=== PATIENT | female | born 1955 | race Caucasian/White ===

== ENCOUNTER → 2018-09-09 09:38 | Outpatient (CLI) | payer OTHER, SELFPAY | PROVIDERS: PCP Family Medicine; Visit Provider Surgery | DX: R10.9 Unspecified abdominal pain (principal) ==

== ENCOUNTER → 2018-09-09 12:52 | Outpatient (CLI) | payer OTHER, SELFPAY ==
[2018-09-09 13:11] LABS: Add Manual Diff / Slide Review NO; Basophils Percent Auto 0.9 % (0-2); Eosinophils Percent Auto 2.4 % (2-4); Hematocrit 37.4 % (36-46); Hemoglobin 12.5 g/dL (12.0-16.0); Lymphocytes Percent Auto 31.1 % (25-40); Mean Corpuscular HGB Conc 33.6 % (30-36); Mean Corpuscular Hemoglobin 31.1 PG (26-34); Mean Corpuscular Volume 92.5 fL (80-100); Monocytes Percent Auto 9.5 % (3-14); Neutrophils Absolute Auto 3500 /uL (3000-5900); Neutrophils Percent Auto 56.1 % (50-75); Platelet Count 233 X10^3/uL (150-400); Red Blood Cell Count 4.04 X10^6/uL (4.0-5.2); Red Cell Distribution Width 14.1 % (11.6-14.8); White Blood Cell Count 6.2 X10^3/uL (4.5-11.0)
[2018-09-09 13:34] LABS: Alanine Aminotransferase 23 IU/L (9-52); Albumin 4.4 g/dL (3.5-5.0); Albumin Globulin Ratio 1.4 (1.0-2.8); Alkaline Phosphatase 55 U/L (38-126); Aspartate Aminotransferase 32 IU/L (14-36); BUN Creatinine Ratio 22.5 (6-22); Bilirubin Total 0.5 mg/dL (0.2-1.3); Blood Urea Nitrogen 18 mg/dL (7-17); Calcium 9.4 mg/dL (8.4-10.2); Carbon Dioxide 30 mmol/L (22-32); Chloride 105 mmol/L (98-107); Estimated Glomerular Filt Rate > 60.0 mL/min (>60); Globulin 3.2 g/dL (1.7-4.1); Glucose 88 mg/dL (80-110); HEMOLYSIS < 15 (0-50); Potassium 4.1 mmol/L (3.4-5.1); Sodium 144 mmol/L (137-145); Total Protein 7.6 g/dL (6.3-8.2)
--- NOTE | 2018-09-09 13:50 | DI.US.S_ITS ---
PROCEDURE: US ABDOMEN COMPLETE INDICATIONS: PAIN, BLOATING TECHNIQUE: Real-time scanning was performed of the abdominal and retroperitoneal organs, with image documentation. COMPARISON: None. FINDINGS: Liver: Liver is normal in size with mild steatosis. Gallbladder: Gallbladder demonstrates presence of multiple echogenic foci with. Wall thickness is within normal limits measuring 1.7 mm. Biliary ducts: Intrahepatic bile ducts are non-dilated. Extrahepatic bile duct caliber measures 6.3 mm. Normal is 6-7 mm or less in diameter, or 10 mm or less post-cholecystectomy. Pancreas: Visualized portions of the pancreas are sonographically normal. Spleen: Spleen is normal in size and homogeneous in echotexture. Kidneys: Kidneys are normal in size and echotexture. Right kidney measures 12.3 cm long; left kidney measures 10.7 cm long. No hydronephrosis or nephrolithiasis. No solid masses. Aorta: Visualized aorta is normal in caliber at less than 3 cm. Iliacs: Proximal common iliac arteries are normal in caliber at less than 2.5 cm. IVC: Intrahepatic inferior vena cava is patent. Miscellaneous: No free abdominal fluid. IMPRESSION: 1. Cholelithiasis without imaging evidence of cholecystitis. Dictated by: Cami Huang M.D. on 09/09/2018 at 15:49 Approved by: Cami Huang M.D. on 09/09/2018 at 16:17
== END ==
PROVIDERS: PCP Family Medicine; Visit Provider Surgery
DX: K80.20 Calculus of gallbladder without cholecystitis without obstruction (principal); R10.9 Unspecified abdominal pain
CPT/HCPCS: 36415; 76700; 80053; 85025

== ENCOUNTER → 2018-09-13 17:00 | Outpatient (CLI) | payer OTHER, SELFPAY | PROVIDERS: PCP Family Medicine | DX: Z23 Encounter for immunization (principal) | CPT/HCPCS: 90471; 90686 ==

== ENCOUNTER → 2019-08-25 08:40 | Outpatient (CLI) | payer OTHER, SELFPAY | PROVIDERS: PCP Family Medicine | DX: Z23 Encounter for immunization (principal) | CPT/HCPCS: 90471; 90686 ==

== ENCOUNTER → 2020-10-26 10:40 | Outpatient (CLI) | payer OTHER, SELFPAY ==
[2020-10-26 12:38] LABS: Add Manual Diff / Slide Review NO; Basophils Absolute Auto 0 /uL (0-100); Basophils Percent Auto 0.8 % (0-2); Eosinophils Absolute Auto 100 /uL (0-450); Eosinophils Percent Auto 2.8 % (2-4); Hematocrit 38.9 % (36-46); Hemoglobin 13.2 g/dL (12.0-16.0); Lymphocytes Absolute Auto 2000 /uL (1100-4500); Lymphocytes Percent Auto 39.7 % (25-40); Mean Corpuscular HGB Conc 33.8 % (30-36); Mean Corpuscular Volume 91.6 fL (80-100); Monocytes Absolute Auto 400 /uL (0-900); Monocytes Percent Auto 7.5 % (3-14); Neutrophils Absolute Auto 2500 /uL (1500-7000); Neutrophils Percent Auto 49.2 % (50-75); Platelet Count 228 X10^3/uL (150-400); Red Blood Cell Count 4.25 X10^6/uL (4.0-5.2); Red Cell Distribution Width 13.6 % (11.6-14.8); White Blood Cell Count 5.2 X10^3/uL (4.5-11.0)
[2020-10-26 13:24] LABS: Alanine Aminotransferase 19 IU/L (<35); Albumin 4.2 g/dL (3.5-5.0); Albumin Globulin Ratio 1.4 (1.0-2.8); Alkaline Phosphatase 59 U/L (38-126); Aspartate Aminotransferase 34 IU/L (14-36); BUN Creatinine Ratio 31.3 (6-22); Bilirubin Total 0.3 mg/dL (0.2-1.3); Blood Urea Nitrogen 25 mg/dL (7-17); Calcium 9.5 mg/dL (8.4-10.2); Carbon Dioxide 30 mmol/L (22-32); Chloride 105 mmol/L (98-107); Cholesterol 201 mg/dL (140-199); Estimated Glomerular Filt Rate > 60.0 mL/min (>60); Glucose 88 mg/dL (80-110); HDL Cholesterol 44 mg/dL (40-60); HEMOLYSIS < 15 (0-50); LDL Cholesterol Calculated 95 mg/dL (<100); Potassium 4.5 mmol/L (3.4-5.1); Sodium 137 mmol/L (137-145); Total Protein 7.2 g/dL (6.3-8.2); Triglycerides 310 mg/dL (35-150)
== END ==
PROVIDERS: PCP Registered Nurse; Referring Provider Registered Nurse; Visit Provider Registered Nurse
DX: Z00.00 Encounter for general adult medical examination without abnormal findings (principal); F41.8 Other specified anxiety disorders; Z79.899 Other long term (current) drug therapy; E78.5 Hyperlipidemia, unspecified
CPT/HCPCS: 36415; 80053; 80061; 85025

== ENCOUNTER → 2020-11-05 10:12 | Outpatient (CLI) | payer OTHER, SELFPAY ==
[2020-11-05 10:49] LABS: COVID19 -Nasal RAPID Negative (Negative)
== END ==
PROVIDERS: PCP Registered Nurse; Visit Provider Physician Assistant
DX: Z11.59 Encounter for screening for other viral diseases (principal)
CPT/HCPCS: 87635

== ENCOUNTER → 2020-11-29 09:11 | Outpatient (CLI) | payer OTHER, SELFPAY ==
[2020-11-29] MEDS: COVID-19 VACC(MODERNA-1)/PF 100 MCG/0.5 ML VIAL IM (09:21)
== END ==
PROVIDERS: PCP Registered Nurse; Visit Provider Internal Medicine
DX: Z23 Encounter for immunization (principal)
CPT/HCPCS: 0011A; 91301

== ENCOUNTER → 2020-12-26 09:16 | Outpatient (CLI) | payer OTHER, SELFPAY ==
[2020-12-26] MEDS: COVID-19 VACC #2, MRNA(MOD) 100 MCG/0.5 ML VIAL IM (09:19)
== END ==
PROVIDERS: PCP Registered Nurse; Visit Provider Internal Medicine
DX: Z23 Encounter for immunization (principal)
CPT/HCPCS: 0012A; 91301

== ENCOUNTER → 2021-09-12 | Outpatient (CLI) | payer OTHER, SELFPAY | PROVIDERS: PCP Registered Nurse; Referring Provider Internal Medicine; Visit Provider Internal Medicine | DX: Z23 Encounter for immunization (principal) | CPT/HCPCS: 90471; 90686 ==

== ENCOUNTER → 2021-10-04 08:20 | Outpatient (CLI) | payer OTHER, SELFPAY ==
[2021-10-04] MEDS: COVID-19 VACC #3, MRNA(MOD) 50 MCG/0.25 ML VIAL IM (08:27)
== END ==
PROVIDERS: PCP Registered Nurse; Visit Provider Internal Medicine
DX: Z23 Encounter for immunization (principal)
CPT/HCPCS: 0013A; 91301

== ENCOUNTER → 2022-08-26 09:00 | Outpatient (CLI) | payer OTHER, SELFPAY | PROVIDERS: PCP Registered Nurse; Referring Provider Internal Medicine; Visit Provider Internal Medicine | DX: Z23 Encounter for immunization (principal) | CPT/HCPCS: 90471; 90686 ==

== ENCOUNTER 2023-03-17 06:38 | Emergency (ER) | payer OTHER, SELFPAY ==
[2023-03-17] VITALS (36 sets, daily range): BP systolic 106–177; BP diastolic 74–119; PULSE 71–158; RESP 14–28; TEMP 36.7; O2SAT 93–99; BMI 32.3
--- NOTE | 2023-03-17 06:40 | DI.RAD.S_ITS ---
PROCEDURE: XR CHEST 1V INDICATIONS: new a fib TECHNIQUE: One view of the chest was acquired. COMPARISON: None. FINDINGS: Surgical changes and devices: None. Lungs and pleura: Lungs are clear. No pleural effusions or pneumothorax. Mediastinum: Mediastinal contours appear normal. Heart size is normal. Bones and chest wall: No suspicious bony lesions. Overlying soft tissues appear unremarkable. IMPRESSION: No acute cardiopulmonary process. Agree with preliminary report. Dictated by: Andres Allen M.D. on 03/17/2023 at 8:00 Approved by: Andres Allen M.D. on 03/17/2023 at 8:00
[2023-03-17 06:51] LABS: Add Manual Diff / Slide Review NO; Basophils Absolute Auto 100 /uL (0-100); Basophils Percent Auto 1.5 % (0-2); Eosinophils Absolute Auto 200 /uL (0-450); Eosinophils Percent Auto 3.9 % (2-4); Hematocrit 43.5 % (36-46); Hemoglobin 14.7 g/dL (12.0-16.0); Lymphocytes Absolute Auto 2400 /uL (1100-4500); Lymphocytes Percent Auto 37.2 % (25-40); Mean Corpuscular HGB Conc 33.7 % (30-36); Mean Corpuscular Hemoglobin 30.3 PG (26-34); Monocytes Absolute Auto 600 /uL (0-900); Monocytes Percent Auto 9.9 % (3-14); Neutrophils Absolute Auto 3000 /uL (1500-7000); Neutrophils Percent Auto 47.5 % (50-75); Platelet Count 257 X10^3/uL (150-400); Red Blood Cell Count 4.84 X10^6/uL (4.0-5.2); Red Cell Distribution Width 13.8 % (11.6-14.8); White Blood Cell Count 6.3 X10^3/uL (4.5-11.0)
[2023-03-17] MEDS: dilTIAZem 5 MG/ML SDV 20 MG IV (06:55)
[2023-03-17 07:02] LABS: Alanine Aminotransferase 27 IU/L (<35); Albumin 4.1 g/dL (3.5-5.0); Albumin Globulin Ratio 1.1 (1.0-2.8); Alkaline Phosphatase 66 U/L (38-126); Aspartate Aminotransferase 37 IU/L (14-36); Bilirubin Total 0.5 mg/dL (0.2-1.3); Blood Urea Nitrogen 21 mg/dL (7-17); Carbon Dioxide 25 mmol/L (22-32); Chloride 106 mmol/L (98-107); Estimated Glomerular Filt Rate > 60 mL/min (>60); Globulin 3.6 g/dL (1.7-4.1); Glucose 132 mg/dL (80-110); HEMOLYSIS < 15 (0-50); Magnesium 1.9 mg/dL (1.6-2.3); Potassium 3.9 mmol/L (3.4-5.1); Sodium 140 mmol/L (137-145); Total Protein 7.7 g/dL (6.3-8.2)
[2023-03-17 07:14] LABS: Troponin I < 0.012 ng/mL (0.01-0.034)
--- NOTE | 2023-03-17 07:27 | ED.ARRPALP ---
HPI - Arrhythmia/Palpitations General Chief Complaint: Arrhythmia/Palpitations Stated Complaint: chest pain Time Seen by Provider: 03/17/23 06:40 Source: patient Mode of arrival: Ambulatory Limitations: no limitations History of Present Illness HPI narrative: Patient is a 67-year-old female who arrived to the emergency department this morning for palpitations. She states she was at work this morning when she would sudden onset feeling like her heart was beating fast. She denies chest pain, shortness of breath or lightheadedness. She is never been diagnosed with atrial fibrillation in the past. She states she had 1 episode over the weekend that lasted 10-15 minutes they felt very similar to this but it did resolve on its own. No changes in any medications. No swelling in her legs. No prior cardiac history Related Data Previous Rx's Medication Instructions Recorded venlafaxine 75 mg capsule,extended 225 mg PO DAILY anxiety with 03/20/22 release 24 hr (Effexor XR) depression 90 days #270 caps rivaroxaban 20 mg tablet (Xarelto) 20 mg PO QPM #28 tabs 03/17/23 Allergies Allergy/AdvReac Type Severity Reaction Status Date / Time No Known Drug Allergies Allergy Verified 10/22/20 13:22 Review of Systems Constitutional Constitutional: Reports system reviewed and no additional complaints, except as documented Cardiovascular Cardiovascular: Reports system reviewed and no additional complaints, except as documented Respiratory Respiratory: Reports system reviewed and no additional complaints, except as documented Gastrointestinal Gastrointestinal: Reports system reviewed and no additional complaints, except as documented Integumentary/Breasts Skin/Breast: Reports system reviewed and no additional complaints, except as documented Neurologic Neurologic: Reports system reviewed and no additional complaints, except as documented Hematologic/Lymphatic On Anticoagulants: No Patient History Medical History Abnormal laboratory test result Chronic back pain (~2016) Surgical History History of tonsillectomy Social History Smoking Status: Current every day smoker Smoking Status: Current every day smoker alcohol intake frequency: a few times a month Substance Use Type: does not use Exam Initial Vital Signs Initial Vital Signs: Vital Signs Pulse Rate 150 H 03/17/23 06:40 Respiratory Rate 21 03/17/23 06:40 Blood Pressure 166/107 H 03/17/23 06:40 Pulse Oximetry 97 03/17/23 06:40 Oxygen Delivery Method Room Air 03/17/23 06:40 Const General: cooperative and comfortable HENMT Head: normal to inspection and normocephalic Resp Effort & Inspection: normal respiratory effort Auscultation: clear to auscultation bilaterally Cardio Rate: tachycardic Rhythm: abnormal rhythm GI Inspection: normal to inspection Neuro General: patient alert, patient awake and moves all extremities Extrem General: No edema Procedures Cardioversion Consent Signed: Yes Indication: AFib with RVR Stability: Stable Number of attempts (shocks): 1 Joules used: 120 Cardiac rhythm post-cardioversion: Sinus rhythm Procedural Sedation Consent signed: Yes Time out performed: Yes Indication: cardioversion ASA Class: II Mallampati Airway Classification: Class II Preparation: manager monitoring applied, pulse oximeter, capnometry used, supplemental O2 applied, suction/airway equipment at bedside and IV secured Fentanyl: IV Fentanyl dose (mcg): 25 IV Propofol dose (mg): 90 Intraservice time/total sedation time (min): 15 ED Sedation Level: Moderate (Concious) Patient Tolerated Procedure: Well Complications: hypoxia Interventions: Airway repositioned and Oxygen applied Course Orders Ordered: ED Orders 03/17/23 06:40 XR chest 1V Stat Complete Blood Count AUTO DIFF Stat Comprehensive Metabolic Panel Stat Magnesium Stat TSH [Thyroid Stimulating Hormone] Stat Troponin I Stat 03/17/23 08:26 EKG-12 Lead Stat 03/17/23 08:29 Urine Culture Stat Urine Microscopic Stat Discontinued Medications Diltiazem HCl (Diltiazem 5 Mg/Ml Sdv) 20 mg IV NOW ONE Stop: 03/17/23 06:46 Last Admin: 03/17/23 06:55 Dose: 20 mg Documented By: MASSIMO Fentanyl (Fentanyl 100 Mcg/2 Ml Inj) 25 mcg IV NOW ONE Stop: 03/17/23 07:28 Last Admin: 03/17/23 08:11 Dose: 25 mcg Documented By: RB Propofol (Propofol 200 Mg/20 Ml Vial) 100 mg IV NOW ONE Stop: 03/17/23 07:28 Last Admin: 03/17/23 08:11 Dose: 100 mg Documented By: RB Vital Signs Vital signs: Vital Signs - 8 hr 03/17/23 06:40 03/17/23 06:55 03/17/23 06:40 Temperature Pulse Rate 150 H 158 H 153 H Respiratory Rate 21 16 Blood Pressure 166/107 H 165/107 H Pulse Oximetry 97 97 Oxygen Delivery Method Room Air 03/17/23 06:56 03/17/23 06:56 03/17/23 07:00 Temperature Pulse Rate 144 H Respiratory Rate Blood Pressure 171/100 H 117/77 Pulse Oximetry 95 Oxygen Delivery Method 03/17/23 07:00 03/17/23 07:00 03/17/23 07:05 Temperature Pulse Rate 137 H 135 H Respiratory Rate 17 18 Blood Pressure 155/85 H Pulse Oximetry 95 95 Oxygen Delivery Method 03/17/23 07:05 03/17/23 07:10 03/17/23 07:10 Temperature Pulse Rate 125 H 126 H Respiratory Rate 21 21 Blood Pressure 136/76 Pulse Oximetry 95 95 Oxygen Delivery Method 03/17/23 07:15 03/17/23 07:16 03/17/23 07:16 Temperature Pulse Rate 128 H 132 H Respiratory Rate 19 15 Blood Pressure 123/95 H Pulse Oximetry 94 95 Oxygen Delivery Method 03/17/23 07:20 03/17/23 07:20 03/17/23 07:25 Temperature Pulse Rate 127 H Respiratory Rate 22 Blood Pressure 165/118 H 165/97 H Pulse Oximetry 95 Oxygen Delivery Method 03/17/23 07:25 03/17/23 07:30 03/17/23 07:30 Temperature Pulse Rate 132 H 132 H Respiratory Rate 15 Blood Pressure 147/99 H Pulse Oximetry 96 96 Oxygen Delivery Method 03/17/23 07:42 03/17/23 07:43 03/17/23 07:43 Temperature Pulse Rate 138 H 146 H Respiratory Rate 21 Blood Pressure 115/92 H Pulse Oximetry 99 98 Oxygen Delivery Method 03/17/23 07:45 03/17/23 07:50 03/17/23 07:50 Temperature Pulse Rate 129 H 133 H Respiratory Rate 20 14 Blood Pressure 139/99 H Pulse Oximetry 96 96 Oxygen Delivery Method 03/17/23 07:59 03/17/23 08:00 03/17/23 08:00 Temperature Pulse Rate 145 H 135 H Respiratory Rate 17 Blood Pressure 145/95 H Pulse Oximetry 97 97 Oxygen Delivery Method 03/17/23 08:05 03/17/23 08:05 03/17/23 08:10 Temperature Pulse Rate 135 H Respiratory Rate 18 Blood Pressure 158/97 H 147/94 H Pulse Oximetry 96 Oxygen Delivery Method 03/17/23 08:10 03/17/23 08:15 03/17/23 08:16 Temperature Pulse Rate 138 H 136 H 140 H Respiratory Rate 22 18 Blood Pressure Pulse Oximetry 97 96 96 Oxygen Delivery Method 03/17/23 08:16 03/17/23 08:20 03/17/23 08:20 Temperature Pulse Rate 149 H Respiratory Rate Blood Pressure 176/115 H 177/119 H Pulse Oximetry 93 Oxygen Delivery Method 03/17/23 08:25 03/17/23 08:27 03/17/23 08:27 Temperature Pulse Rate 86 84 Respiratory Rate Blood Pressure 113/78 Pulse Oximetry 97 95 Oxygen Delivery Method 03/17/23 08:30 03/17/23 08:30 03/17/23 08:35 Temperature Pulse Rate 82 Respiratory Rate Blood Pressure 106/74 130/82 Pulse Oximetry 94 Oxygen Delivery Method 03/17/23 08:35 03/17/23 08:45 03/17/23 08:48 Temperature 98.1 F Pulse Rate 80 85 75 Respiratory Rate 18 21 Blood Pressure 120/77 Pulse Oximetry 94 96 Oxygen Delivery Method 03/17/23 08:40 03/17/23 08:40 03/17/23 08:45 Temperature Pulse Rate 76 Respiratory Rate Blood Pressure 137/79 138/75 Pulse Oximetry 95 Oxygen Delivery Method 03/17/23 08:45 Temperature Pulse Rate 74 Respiratory Rate Blood Pressure Pulse Oximetry 95 Oxygen Delivery Method MDM - Arrhythmia/Palpitations Lab Data Attestation: I reviewed the patient's lab results. 03/17/23 06:40 03/17/23 06:40 Labs: Lab Results 03/17/23 03/17/23 03/17/23 Range/Units 06:40 06:40 06:40 WBC 6.3 (4.5-11.0) X10^3/uL RBC 4.84 (4.0-5.2) X10^6/uL Hgb 14.7 (12.0-16.0) g/dL Hct 43.5 (36-46) % MCV 90.0 (80-100) fL MCH 30.3 (26-34) PG MCHC 33.7 (30-36) % RDW 13.8 (11.6-14.8) % Plt Count 257 (150-400) X10^3/uL Neut % (Auto) 47.5 L (50-75) % Lymph % (Auto) 37.2 (25-40) % [place] % (Auto) 9.9 (3-14) % Eos % (Auto) 3.9 (2-4) % Baso % (Auto) 1.5 (0-2) % Neut # (Auto) 3000 (0124-6999) /uL Lymph # (Auto) 2400 (9448-5978) /uL [place] # (Auto) 600 (0-900) /uL Eos # (Auto) 200 (0-450) /uL Baso # (Auto) 100 (0-100) /uL Sodium 140 (137-145) mmol/L Potassium 3.9 (3.4-5.1) mmol/L Chloride 106 (98-107) mmol/L Carbon Dioxide 25 (22-32) mmol/L BUN 21 H (7-17) mg/dL Creatinine 0.60 (0.52-1.04) mg/dL Estimated GFR > 60 (>60) mL/min BUN/Creatinine Ratio 35.0 H (6-22) Glucose 132 H (80-110) mg/dL Calcium 9.0 (8.4-10.2) mg/dL Magnesium 1.9 (1.6-2.3) mg/dL Total Bilirubin 0.5 (0.2-1.3) mg/dL AST 37 H (14-36) IU/L ALT 27 (<35) IU/L Alkaline Phosphatase 66 (38-126) U/L Troponin I < 0.012 (0.01-0.034) ng/mL Total Protein 7.7 (6.3-8.2) g/dL Albumin 4.1 (3.5-5.0) g/dL Globulin 3.6 (1.7-4.1) g/dL Albumin/Globulin Ratio 1.1 (1.0-2.8) TSH 4.45 (0.47-4.68) uIU/mL Point of Care Testing Test Results Negative Urine Dip Bedside Urine Glucose Negative Bedside Urine Bilirubin - Negative Bedside Urine Ketone - Negative Urine Specific [place] 1.010 Bedside Urine Occult Blood - Negative Bedside Urine pH 7.5 Bedside Urine Protein - Negative Bedside Urine Urobilinogen - Negative Bedside Urine Nitrite - Negative Bedside Urine Leukocytes +/- 15 Esterase Imaging Data Chest x-ray: Radiologist's Impresson: PROCEDURE:? XR CHEST 1V ? INDICATIONS:? new a fib ? TECHNIQUE:? One view of the chest was acquired.? ? COMPARISON:? None. ? FINDINGS:? ? Surgical changes and devices:? None.? ? Lungs and pleura:? Lungs are clear.? No pleural effusions or pneumothorax.? ? Mediastinum:? Mediastinal contours appear normal.? Heart size is normal.? ? Bones and chest wall:? No suspicious bony lesions.? Overlying soft tissues appear unremarkable.? ? IMPRESSION:? No acute cardiopulmonary process. ? Agree with preliminary report.? ECG Data Attestation: I personally reviewed and interpreted this ECG as follows: Interpretation: Atrial fibrillation Ventricular rate 150 Left axis deviation Normal QRS Nonspecific ST T wave changes Post cardioversion Ventricular rate 80 Inverted P waves in all leads except 1, AVR, aVL concerning for an ectopic atrial rhythm Left axis deviation Normal QRS Normal QTC No ST T wave changes MDM Narrative Medical decision making narrative: Patient is in atrial fibrillation or potentially atrial flutter given her heart rate in the upper 140s/low 150s. The symptoms did start this morning. She is not currently on anticoagulation. Was not having any chest pain or lightheadedness. Probably had 1 episode of this that self-resolved a couple days ago but prior to that no history of palpitations or AFib. We did discuss the options to include rate control versus rhythm control in the risks and benefits of each of these. After this discussion the patient opted for the rhythm control/cardioversion. She was sedated and cardioversion without incident. She tolerated the procedure well. Was in sinus rhythm afterwards however did have inverted P waves which is somewhat concerning for an ectopic atrial focus. I did discuss this with her. The plan will be is to put her on anticoagulation. She was given specific return precautions. We discussed the importance of follow-up with Cardiology and also a primary doctor for further evaluation. Patient expressed understanding and agreement with plan. Discharge Plan Departure Patient Disposition: Home Clinical Impression: Atrial fibrillation status post cardioversion Instructions: DI for Cardioversion, DI for Atrial Fibrillation Activity Restrictions/Additional Instructions: A prescription for the blood thinning medicine was sent to the pharmacy of your choice. Please start taking it as directed. I highly recommend that you [employer]? Xarelto co-pay card? and fill out the information like we discussed in order to get a discount on this medication. I also recommend that you follow-up with your primary doctor and you will also most likely needed to see Cardiology. Return to the emergency department for new or worsening symptoms like we discussed. Prescriptions: New Xarelto 20 mg tablet 20 mg PO QPM Qty: 28 0RF Rx Instructions: must administer with evening meal No Action venlafaxine [Effexor XR] 75 mg capsule,extended release 24hr 225 mg PO DAILY 90 Days Qty: 270 4RF Referrals: Miscellaneous,DoctorMD [Primary Care Provider] - Dolly Storey MD [Physician] - Stand Alone Forms: Patient Portal/API
[2023-03-17 07:44] LABS: Thyroid Stimulating Hormone 4.45 uIU/mL (0.47-4.68)
[2023-03-17] MEDS: propofoL 200 MG/20 ML VIAL 100 MG IV (08:11)
[2023-03-17] MEDS: fentaNYL 100 MCG/2 ML INJ 25 MCG IV (08:11)
[2023-03-17 09:14] LABS: Amorphous Sediment Urine 1+; Bacteria Urine Few (2-10); RBC Urine None Seen (0-5/HPF); Squamous Epithelial Cell Urine 0-1 /HPF (0-5/HPF); WBC Urine 0-1/HPF (0-5/HPF)
== END 2023-03-17 09:37 | disposition home or self-care (01) ==
PROVIDERS: Emergency Medicine; Emergency Provider Emergency Medicine
DX: I48.91 Unspecified atrial fibrillation (principal); R07.9 Chest pain, unspecified; Z79.01 Long term (current) use of anticoagulants
CPT/HCPCS: 36415; 71045; 80053; 81003; 81015; 83735; 84443; 84484; 85025; 87086; 92960; 93005; 93010; 96374; 99152; 99284; 99285; J2704; J3010

== ENCOUNTER → 2023-03-20 09:50 | Outpatient (CLI) | payer OTHER, SELFPAY ==
[2023-03-20 11:52] LABS: Cholesterol 200 mg/dL (140-199); HDL Cholesterol 40 mg/dL (40-60); LDL Cholesterol Calculated 99 mg/dL (<100); Triglycerides 306 mg/dL (35-150)
[2023-03-21 08:41] LABS: Labcorp Hemoglobin (Hb) A1c 5.7 % (4.8-5.6)
== END ==
PROVIDERS: PCP Family Medicine; Referring Provider Family Medicine; Visit Provider Family Medicine
DX: E78.5 Hyperlipidemia, unspecified (principal); I48.91 Unspecified atrial fibrillation; R73.9 Hyperglycemia, unspecified
CPT/HCPCS: 80061; 83036

== ENCOUNTER → 2023-04-09 07:12 | Outpatient (CLI) | payer OTHER, SELFPAY ==
[2023-04-09 07:59] LABS: Cholesterol 160 mg/dL (140-199); HDL Cholesterol 41 mg/dL (40-60); LDL Cholesterol Calculated 89 mg/dL (<100); Triglycerides 151 mg/dL (35-150)
== END ==
PROVIDERS: PCP Family Medicine; Referring Provider Internal Medicine Cardiovascular Disease; Visit Provider Internal Medicine Cardiovascular Disease
DX: E78.5 Hyperlipidemia, unspecified (principal)
CPT/HCPCS: 36415; 80061

== ENCOUNTER 2023-09-09 11:38 | Emergency (ER) | payer OTHER, SELFPAY ==
[2023-09-09] VITALS (16 sets, daily range): BP systolic 112–153; BP diastolic 63–101; PULSE 61–150; RESP 14–47; TEMP 36.6; O2SAT 94–97; BMI 33.9
--- NOTE | 2023-09-09 11:45 | DI.RAD.S_ITS ---
PROCEDURE: XR CHEST 1V INDICATIONS: chest pain TECHNIQUE: One view of the chest was acquired. COMPARISON: [facility], CR, XR CHEST 1V, 03/17/2023, 6:43. FINDINGS: Surgical changes and devices: None. Lungs and pleura: Lungs are clear. No pleural effusions or pneumothorax. Mediastinum: Mediastinal contours appear normal. Heart size is minimally prominent. Bones and chest wall: No suspicious bony lesions. Overlying soft tissues appear unremarkable. IMPRESSION: Portable chest within normal limits for age. Dictated by: Cami Huang M.D. on 09/09/2023 at 12:14 Approved by: Cami Huang M.D. on 09/09/2023 at 12:15
[2023-09-09 12:04] LABS: Add Manual Diff / Slide Review NO; Basophils Absolute Auto 100 /uL (0-100); Basophils Percent Auto 1.1 % (0-2); Eosinophils Absolute Auto 200 /uL (0-450); Eosinophils Percent Auto 2.3 % (2-4); Hematocrit 40.7 % (36-46); Hemoglobin 13.9 g/dL (12.0-16.0); Lymphocytes Absolute Auto 2800 /uL (1100-4500); Lymphocytes Percent Auto 40.6 % (25-40); Mean Corpuscular HGB Conc 34.1 % (30-36); Mean Corpuscular Hemoglobin 30.3 PG (26-34); Monocytes Absolute Auto 500 /uL (0-900); Monocytes Percent Auto 7.1 % (3-14); Neutrophils Absolute Auto 3400 /uL (1500-7000); Neutrophils Percent Auto 48.9 % (50-75); Platelet Count 278 X10^3/uL (150-400); Red Blood Cell Count 4.58 X10^6/uL (4.0-5.2); Red Cell Distribution Width 13.9 % (11.6-14.8)
[2023-09-09 12:09] LABS: INR 1.7 (0.9-1.3); Prothrombin Time 19.1 SECONDS (10.1-12.7)
[2023-09-09 12:12] LABS: PTT Partial Thromboplastin Tim 39 SECONDS (26-36)
[2023-09-09 12:13] LABS: Alanine Aminotransferase 25 IU/L (<35); Albumin 4.4 g/dL (3.5-5.0); Albumin Globulin Ratio 1.4 (1.0-2.8); Alkaline Phosphatase 59 U/L (38-126); Aspartate Aminotransferase 33 IU/L (14-36); BUN Creatinine Ratio 40.3 (6-22); Bilirubin Total 0.3 mg/dL (0.2-1.3); Blood Urea Nitrogen 27 mg/dL (7-17); Calcium 9.7 mg/dL (8.4-10.2); Carbon Dioxide 24 mmol/L (22-32); Chloride 107 mmol/L (98-107); Creatine Kinase 90 U/L (30-135); Estimated Glomerular Filt Rate > 60 mL/min (>60); Globulin 3.1 g/dL (1.7-4.1); Glucose 133 mg/dL (80-110); HEMOLYSIS < 15 (0-50); Lipase 150 U/L (23-300); Magnesium 1.9 mg/dL (1.6-2.3); Potassium 3.8 mmol/L (3.4-5.1); Sodium 139 mmol/L (137-145); Total Protein 7.5 g/dL (6.3-8.2)
--- NOTE | 2023-09-09 12:21 | ED.ARRPALP ---
HPI - Arrhythmia/Palpitations General Chief Complaint: Arrhythmia/Palpitations Stated Complaint: Tachycardia Time Seen by Provider: 09/09/23 11:48 Source: patient Mode of arrival: Ambulatory History of Present Illness HPI narrative: Patient here for palpitations. No chest pain no shortness of breath no dizziness no syncope. Patient has a nurse here in the operating room. Symptoms started yesterday morning. She is on metoprolol as well as Xarelto. She sees cardiology [facility] Dr. Storey, she has been electrocardioversion in February of this year. She does not wish to try Cardizem or IV medications for rate control, she states it was not successful last time. She desires electrocardioversion. NPO since 6:00 a.m. today. Risks and benefits reviewed with her for electrocardioversion. Written Consent was obtained. Related Data Home Medications Medication Instructions Recorded Confirmed metoprolol succinate 25 mg 25 mg PO DAILY 06/03/23 06/03/23 tablet,extended release 24 hr Previous Rx's Medication Instructions Recorded rivaroxaban 20 mg tablet (Xarelto) 20 mg PO QPM #28 tabs 03/17/23 venlafaxine 75 mg capsule,extended 225 mg (3 x 75 mg) PO DAILY 03/20/23 release 24 hr (Effexor XR) anxiety with depression 90 days #270 caps atorvastatin 20 mg tablet (Lipitor) 20 mg PO BEDTIME cholesterol #90 03/22/23 tabs losartan 50 mg tablet 50 mg PO DAILY blood pressure #90 06/03/23 tabs Allergies Allergy/AdvReac Type Severity Reaction Status Date / Time No Known Drug Allergies Allergy Verified 09/09/23 11:50 Review of Systems Review of Systems Narrative: GENERAL: negative chills, fatigue, malaise, fever, sweats. HEENT: negative sinus pain, ear pain, sore throat RESPIRATORY: negative dyspnea, cough CARDIOVASCULAR: negative chest pain, positive palpitations GASTROINTESTINAL: negative nausea, vomiting, abdominal pain : negative dysuria, frequency, hematuria MUSCULOSKELETAL: negative muscle or bony pain SKIN: negative rash, skin lesions NEUROLOGIC: negative weakness, numbness ROS Unobtainable: All systems reviewed & are unremarkable except as noted in HPI and below Patient History Medical History IFG (impaired fasting glucose) Benign essential HTN Sciatic pain Abnormal laboratory test result Chronic back pain (~2016) Surgical History History of tonsillectomy Social History Smoking Status: Current every day smoker Smoking Status: Current every day smoker alcohol intake frequency: a few times a month Substance Use Type: does not use Exam Narrative Exam Narrative: GENERAL: in no distress, not toxic not dyspneic HEAD: Normocephalic. EYES: Pupils equal round ENT: Mucous membranes moist. NECK: Trachea midline. CARDIOVASCULAR: Tachycardia with irregular irregular rhythm RESPIRATORY: Clear to auscultation. Breath sounds equal bilaterally. No wheezes, rales, or rhonchi. GASTROINTESTINAL: Abdomen soft, non-tender EXTREMITIES: No gross deformities. BACK: No flank tenderness. NEURO: AOx4. SKIN: Warm and dry PSYCH: Not anxious, is cooperative Initial Vital Signs Initial Vital Signs: Vital Signs Pulse Rate 129 H 09/09/23 11:45 Blood Pressure 123/90 09/09/23 11:45 Pulse Oximetry 97 09/09/23 11:45 Oxygen Delivery Method Room Air 09/09/23 11:45 Procedures Cardioversion Time of Cardioversion: 12:42 Consent Signed: Yes Indication: Atrial fibrillation Stability: Stable Number of attempts (shocks): 1 Joules used: 120 Cardiac rhythm post-cardioversion: Sinus rhythm Procedural Sedation Time of procedure: 12:40 Consent signed: Yes Time out performed: Yes Indication: cardioversion ASA Class: I Mallampati Airway Classification: Class I Time of Last PO Intake: 06:00 Preparation: director hr communications applied, pulse oximeter, capnometry used, supplemental O2 applied, reversal agents at bedside, suction/airway equipment at bedside and IV secured IV Propofol dose (mg): 60 Intraservice time/total sedation time (min): 10 ED Sedation Level: Moderate (Concious) Patient Tolerated Procedure: Well and No complications Course Orders Ordered: ED Orders 09/09/23 11:45 XR chest 1V Stat EKG-12 Lead Stat 09/09/23 11:54 Complete Blood Count AUTO DIFF Stat Comprehensive Metabolic Panel Stat Lipase Stat Magnesium Stat PTT Partial Thromboplastin Dong Stat Prothrombin Time INR Stat Troponin & CK Cardiac Panel Stat 09/09/23 12:54 EKG-12 Lead Stat Discontinued Medications Propofol (Propofol 200 Mg/20 Ml Vial) 100 mg IV NOW ONE Stop: 09/09/23 12:25 Last Admin: 09/09/23 12:41 Dose: 60 mg Documented By: HA Vital Signs Vital signs: Vital Signs - 8 hr 09/09/23 11:45 09/09/23 11:45 09/09/23 11:47 Temperature 97.8 F Pulse Rate 129 H 150 H Respiratory Rate 18 Blood Pressure 123/90 123/90 Pulse Oximetry 97 96 Oxygen Delivery Method Room Air Room Air 09/09/23 12:00 09/09/23 12:11 09/09/23 12:11 Temperature Pulse Rate 144 H 137 H Respiratory Rate 14 26 H Blood Pressure 120/94 H Pulse Oximetry 97 95 Oxygen Delivery Method Room Air Room Air 09/09/23 12:30 09/09/23 12:30 09/09/23 12:36 Temperature Pulse Rate 131 H 64 Respiratory Rate 30 H 24 Blood Pressure 149/101 H Pulse Oximetry 96 Oxygen Delivery Method Room Air 09/09/23 12:41 09/09/23 12:41 09/09/23 12:44 Temperature Pulse Rate 138 H 66 Respiratory Rate 24 27 H Blood Pressure 153/64 H Pulse Oximetry 97 94 Oxygen Delivery Method Room Air Room Air 09/09/23 12:44 09/09/23 12:46 09/09/23 12:46 Temperature Pulse Rate 66 Respiratory Rate 40 H Blood Pressure 142/81 H 127/63 Pulse Oximetry 94 Oxygen Delivery Method Room Air 09/09/23 12:51 09/09/23 12:51 09/09/23 12:54 Temperature Pulse Rate 61 61 Respiratory Rate 23 22 Blood Pressure 130/70 Pulse Oximetry 96 95 Oxygen Delivery Method Room Air 09/09/23 12:54 09/09/23 13:00 09/09/23 13:00 Temperature Pulse Rate 62 Respiratory Rate 47 H Blood Pressure 112/68 112/72 Pulse Oximetry 96 Oxygen Delivery Method Room Air 09/09/23 13:05 09/09/23 13:05 09/09/23 13:10 Temperature Pulse Rate 63 63 Respiratory Rate 27 H 32 H Blood Pressure 116/71 Pulse Oximetry 97 96 Oxygen Delivery Method Room Air 09/09/23 13:10 09/09/23 13:15 09/09/23 13:15 Temperature Pulse Rate 62 Respiratory Rate 22 Blood Pressure 115/78 116/79 Pulse Oximetry 96 Oxygen Delivery Method 09/09/23 13:20 09/09/23 13:20 Temperature Pulse Rate 63 Respiratory Rate 24 Blood Pressure 117/80 Pulse Oximetry 97 Oxygen Delivery Method Room Air MDM - Arrhythmia/Palpitations Lab Data 09/09/23 11:54 09/09/23 11:54 Labs: Lab Results 09/09/23 Range/Units 11:54 WBC 7.0 (4.5-11.0) X10^3/uL RBC 4.58 (4.0-5.2) X10^6/uL Hgb 13.9 (12.0-16.0) g/dL Hct 40.7 (36-46) % MCV 89.0 (80-100) fL MCH 30.3 (26-34) PG MCHC 34.1 (30-36) % RDW 13.9 (11.6-14.8) % Plt Count 278 (150-400) X10^3/uL Neut % (Auto) 48.9 L (50-75) % Lymph % (Auto) 40.6 H (25-40) % Sac % (Auto) 7.1 (3-14) % Eos % (Auto) 2.3 (2-4) % Baso % (Auto) 1.1 (0-2) % Neut # (Auto) 3400 (7572-3913) /uL Lymph # (Auto) 2800 (3044-6400) /uL Sac # (Auto) 500 (0-900) /uL Eos # (Auto) 200 (0-450) /uL Baso # (Auto) 100 (0-100) /uL PT 19.1 H (10.1-12.7) SECONDS INR 1.7 H (0.9-1.3) APTT 39 H (26-36) SECONDS Sodium 139 (137-145) mmol/L Potassium 3.8 (3.4-5.1) mmol/L Chloride 107 (98-107) mmol/L Carbon Dioxide 24 (22-32) mmol/L BUN 27 H (7-17) mg/dL Creatinine 0.67 (0.52-1.04) mg/dL Estimated GFR > 60 (>60) mL/min BUN/Creatinine Ratio 40.3 H (6-22) Glucose 133 H (80-110) mg/dL Calcium 9.7 (8.4-10.2) mg/dL Magnesium 1.9 (1.6-2.3) mg/dL Total Bilirubin 0.3 (0.2-1.3) mg/dL AST 33 (14-36) IU/L ALT 25 (<35) IU/L Alkaline Phosphatase 59 (38-126) U/L Total Creatine Kinase 90 (30-135) U/L Troponin I < 0.012 (0.01-0.034) ng/mL Total Protein 7.5 (6.3-8.2) g/dL Albumin 4.4 (3.5-5.0) g/dL Globulin 3.1 (1.7-4.1) g/dL Albumin/Globulin Ratio 1.4 (1.0-2.8) Lipase 150 (23-300) U/L Imaging Data Chest x-ray: Radiologist's Impresson: [address] [address] XRay Report Signed Patient: Russell Rodgers MR#: [id number] : 1955 Acct:[id number] Age/Sex: 67 / F Date of Service: 09/09/23 Loc: ED Accession Number: [id number] Procedure: XR chest 1V Ordering Provider: Chuck Lee MD PROCEDURE: XR CHEST 1V INDICATIONS: chest pain TECHNIQUE: One view of the chest was acquired. COMPARISON: [facility], , XR CHEST 1V, 03/17/2023, 6:43. FINDINGS: Surgical changes and devices: None. Lungs and pleura: Lungs are clear. No pleural effusions or pneumothorax. Mediastinum: Mediastinal contours appear normal. Heart size is minimally prominent. Bones and chest wall: No suspicious bony lesions. Overlying soft tissues appear unremarkable. IMPRESSION: Portable chest within normal limits for age. Dictated by: Cami Huang M.D. on 09/09/2023 at 12:14 Approved by: Cami Huang M.D. on 09/09/2023 at 12:15 MDM Narrative Medical decision making narrative: Patient here for palpitations. No chest pain no shortness of breath no dizziness no syncope. Patient has a nurse here in the operating room. Symptoms started yesterday morning. She is on metoprolol as well as Xarelto. She sees cardiology [facility] Dr. Storey, she has been electrocardioversion in February of this year. She does not wish to try Cardizem or IV medications for rate control, she states it was not successful last time. She desires electrocardioversion. NPO since 6:00 a.m. today. Risks and benefits reviewed with her for electrocardioversion. Written Consent was obtained. After history and exam CBC CMP troponin EKG chest x-ray consent for cardioversion and procedural sedation MDM CC: Palpitations Complicating co-morbidities: Atrial fibrillation Data collected from: Patient Medical records reviewed: Office visit with fluid jet cutter operator June 18, 2023 ER visit March 17, 2023 for cardioversion Differential considered: Includes but not limited to AFib RVR Exam documented above, pertinent findings include: Irregular irregular tachycardia Lab Test results independently reviewed as above. Pertinent findings: WBC 7.0 hemoglobin 13.9 INR 1.7 sodium 139 potassium 3.8 bicarb 24 BUN 27 creatinine 0.67 GFR greater than 60 glucose 133 magnesium 1.9 calcium 9.7 troponin less than 0.012 Independently reviewed EKG atrial fibrillation rate 150 with RVR EKG after cardioversion normal sinus rhythm rate 62 Imaging studies independently reviewed: Chest x-ray no acute finding Consultations: 12:26 p.m.. Spoke with patient's fluid jet cutter operator, dr storey, recommends patient to have electrocardioversion now. Patient has been anticoagulated. He will follow up with patient Treatments: Electrocardioversion/propofol Re-evaluations: 1:00 p.m.. Patient awake alert oriented x4. At baseline at this time. No respiratory distress or sport needed. Patient tolerated cardioversion very well. 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 Return precautions reviewed with her. She desires discharge home. 1:26 p.m.. Patient awake alert oriented x4. Remains in sinus rhythm. Not toxic. Reviewed results with her. Patient tolerated procedure very well. She desires discharge home. She does have a limousine driver Discussion: Appropriate for discharge home. Exam and laboratory studies and imaging are reassuring. Patient tolerated cardioversion very well. Patient back in sinus rhythm. I did speak with patient's fluid jet cutter operator for treatment plan and follow up. Patient does have a limousine driver home. Return precautions reviewed. She desires discharge home. Diagnosis: Atrial fibrillation Discharge Plan Departure Patient Disposition: Home Clinical Impression: Atrial fibrillation Qualifiers: Atrial fibrillation type: paroxysmal Qualified Code(s): I48.0 - Paroxysmal atrial fibrillation Instructions: DI for Atrial Fibrillation, DI for Moderate Sedation Activity Restrictions/Additional Instructions: No driving or operating machinery today. Please call your cardiology office today to make appointment for follow up. Please do continue home medications. Return if worse if any questions or concerns. Prescriptions: No Action atorvastatin [Lipitor] 20 mg tablet 20 mg PO BEDTIME Qty: 90 3RF metoprolol succinate 25 mg tablet extended release 24 hr 25 mg PO DAILY losartan 50 mg tablet 50 mg PO DAILY Qty: 90 3RF venlafaxine [Effexor XR] 75 mg capsule,extended release 24hr 225 mg PO DAILY 90 Days Qty: 270 4RF Xarelto 20 mg tablet 20 mg PO QPM Qty: 28 0RF Rx Instructions: must administer with evening meal Referrals: Bekah Laughlin DO [Primary Care Provider] - Stand Alone Forms: Patient Portal/API
[2023-09-09 12:25] LABS: Troponin I < 0.012 ng/mL (0.01-0.034)
[2023-09-09] MEDS: propofoL 200 MG/20 ML VIAL 100 MG IV (12:41)
== END 2023-09-09 13:28 | disposition home or self-care (01) ==
PROVIDERS: Emergency Provider Emergency Medicine; PCP Family Medicine
DX: I48.0 Paroxysmal atrial fibrillation (principal); R07.9 Chest pain, unspecified; Z79.01 Long term (current) use of anticoagulants; Z79.899 Other long term (current) drug therapy
CPT/HCPCS: 36415; 71045; 80053; 82550; 83690; 83735; 84484; 85025; 85610; 85730; 92960; 93005; 99152; 99285; J2704